=== PATIENT | female | born 1965 | race Caucasian/White ===

== ENCOUNTER 2020-11-18 23:59 | Emergency (ER) | payer OTHER ==
[2020-11-19 00:08] VITALS: BP 120/78; PULSE 89; TEMP 98; BMI 29.0
[2020-11-19] MEDS ORDERED: SODIUM CHLORIDE FOR INHALATION 3 ML VIAL.NEB IH ONE (00:23)
[2020-11-19 01:10] LABS: BASO % 0.8 % (0-2.0); EOS % 4.5 % (0-4.5); HEMATOCRIT 37.1 % (32.4-45.2); HEMOGLOBIN 12.3 GM/dL (10.7-15.3); LYMPH % 33.3 % (8-40); MCH 27.1 pg (25.7-33.7); MEAN PLT VOLUME 8.2 fl (7.5-11.1); MONO % 7.5 % (3.8-10.2); NEUT % 53.9 % (42.8-82.8); PLATELET COUNT 372 10^3/uL (134-434); RBC 4.52 M/mm3 (3.60-5.2); RDW 14.4 % (11.6-15.6); WHITE BLOOD COUNT 8.1 K/mm3 (4.0-10.0)
[2020-11-19 02:52] LABS: BLOOD UREA NITROGEN 19.5 mg/dL (7-18); CHLORIDE 106 mmol/L (98-107); CO2 24 mmol/L (21-32); CREATININE 0.7 mg/dL (0.55-1.3); GLUCOSE,RANDOM 125 mg/dL (74-106); SODIUM 138 mmol/L (136-145)
[2020-11-19 02:53] LABS: ALBUMIN 3.4 g/dl (3.4-5.0); BILIRUBIN,TOTAL 0.3 mg/dL (0.2-1); CALCIUM 8.8 mg/dL (8.5-10.1); SGOT/AST 14 U/L (15-37); TOT PROT 7.7 g/dl (6.4-8.2)
[2020-11-19 02:54] LABS: ALK PHOS 106 U/L (45-117); SGPT/ALT 20 U/L (13-61)
== END 2020-11-19 03:15 | disposition home or self-care (01) ==
LOC: FER 23:59
DX: R07.89 Other chest pain (principal); R05 Cough; B34.9 Viral infection, unspecified
CPT/HCPCS: 36415; 71046-TC-FY; 80053; 84484; 85025; 93005; 99285-25; C9803; U0003; U0005